=== PATIENT | male | born 1955 | race African-American/Black ===

== ENCOUNTER 2024-10-18 15:49 | Emergency (ER) | payer MEDICARE ==
[~2024-10-18] VITALS: Ht 172.7 cm; Wt 127.0 kg
[2024-10-18 16:24] VITALS: TEMP 98.7
[2024-10-18 17:07] LABS: BASOPHILS % 1.1 % (0.0-2.0); EOSINOPHILS % 12.9 % (0.0-5.0); HEMATOCRIT. 42.3 % (42.0-52.0); HEMOGLOBIN. 14.2 g/dL (14.0-18.0); LYMPHOCYTES % 21.9 % (20.0-50.0); MEAN CORPUSCULAR HEMOGLOBIN 29.8 pg (28.0-32.0); MEAN CORPUSCULAR HGB CONC 33.5 g/dL (31.0-37.0); MEAN CORPUSCULAR VOLUME 89.1 fL (80.0-94.0); MEAN PLATELET VOLUME 9.7 fl (7.4-10.4); MONOCYTES % 6.6 % (2.0-8.0); NEUTROPHILS % 57.5 % (40.0-76.0); PLATELET 167 x1000/uL (130-400); RED BLOOD CELL COUNT 4.75 mill/uL (4.7-6.1); RED CELL DISTRIBUTION WIDTH 13.8 % (11.6-14.6); WHITE BLOOD COUNT 6.8 x1000/uL (4.5-11.0)
[2024-10-18 17:08] LABS: CHLORIDE 107 mEq/L (98-107); POTASSIUM 3.8 mEq/L (3.5-5.1); SODIUM 144 mEq/L (136-145)
[2024-10-18 17:09] LABS: CARBON DIOXIDE 31 mEq/L (21-32)
[2024-10-18 17:10] LABS: CALCIUM 9.1 mg/dL (8.7-10.4)
[2024-10-18 17:15] LABS: CREATININE 0.8 mg/dL (0.6-1.3); GLUCOSE 97 mg/dL (70-105); TROPONIN I HIGH SENSITIVITY 22 ng/L (3.0-53); UREA NITROGEN BLOOD 10 mg/dL (9-23)
[2024-10-18] MEDS ORDERED: ALBU90AE INH (18:13)
[2024-10-18] MEDS ORDERED: P50 MT (18:13)
[2024-10-18] MEDS ORDERED: FLUT1BLS INH (18:13)
[2024-10-18] MEDS: PREDNISONE 20MG TABLET PO ONE (18:15)
[2024-10-18] MEDS: ALBUTEROL (0.083%) 2.5MG/3ML NEB HHN ONE (18:39)
[2024-10-18 18:40] VITALS: PULSE 64; RESP 18; O2SAT 95
[2024-10-18] MEDS: IPRATROPIUM/ALBUTEROL 0.5-3(2.5)MG/3ML NEB HHN ONE (18:40)
[2024-10-18] MEDS ORDERED: FLUT1BLS3 INH (19:05)
[2024-10-18] MEDS ORDERED: ALBUTEROL (0.083%) 2.5MG/3ML NEB HHN ONE (19:15)
[2024-10-18 19:41] VITALS: BP 157/69; PULSE 73; RESP 19; O2SAT 97
== END 2024-10-18 19:45 | disposition home or self-care (01) ==
LOC: ER 15:49
DX: J44.1 Chronic obstructive pulmonary disease with (acute) exacerbation (principal); I10 Essential (primary) hypertension; Z87.891 Personal history of nicotine dependence
CPT/HCPCS: 99285; 71045; 80048; 85025; 84484; 36415; 94640; 93005; J7512